=== PATIENT | male | born 1995 | race Caucasian/White ===

== ENCOUNTER 2021-10-31 11:11 | Emergency (ER) | payer MEDICAID ==
[~2021-10-31] VITALS: Ht 182.9 cm; Wt 93.2 kg
[2021-10-31] MEDS ORDERED: ALBUTEROL SULFATE 2.5 MG/0.5 ML NEB SOLUTION NEB ONE (12:30)
[2021-10-31] MEDS ORDERED: IPRATROPIUM BROMIDE 0.5 MG/2.5 ML NEB SOLUTION NEB ONE (12:30)
[2021-10-31] MEDS ORDERED: PredniSONE 20 MG TABLET PO ONE (12:30)
[2021-10-31 12:56] LABS: COVID AG,FIA SOURCE NASAL SWAB
[2021-10-31] MEDS ORDERED: PRED-554 PO (14:43)
[2021-10-31] MEDS ORDERED: AZIT250T9 PO (14:43)
[2021-10-31] MEDS ORDERED: ALBU8HFA IH (14:44)
[2021-10-31 15:01] VITALS: BP 117/69
== END 2021-10-31 15:12 | disposition home or self-care (01) ==
LOC: EMS 11:14
DX: J40 Bronchitis, not specified as acute or chronic (principal); F17.210 Nicotine dependence, cigarettes, uncomplicated; Z20.822 Contact with and (suspected) exposure to COVID-19
CPT/HCPCS: 99285; 71046; 87426; 94640; J7512; J7613

== ENCOUNTER 2022-04-04 16:41 | Emergency (ER) | payer MEDICAID ==
[~2022-04-04] VITALS: Ht 182.9 cm; Wt 81.8 kg
[~2022-04-04 16:41] MED LIST: ALBU8HFA IH
[2022-04-04] MEDS ORDERED: IBUP-1492 PO (19:17)
[2022-04-04 19:52] VITALS: BP 124/65
== END 2022-04-04 20:05 | disposition home or self-care (01) ==
LOC: EMS 16:48
DX: M25.511 Pain in right shoulder (principal); Z87.891 Personal history of nicotine dependence
CPT/HCPCS: 99283

== ENCOUNTER 2022-09-30 17:10 | Emergency (ER) | payer MEDICAID ==
[~2022-09-30] VITALS: Ht 188 cm; Wt 91.0 kg
[~2022-09-30 17:10] MED LIST changes: -ALBU8HFA IH; +IBUP-1492 PO
[2022-09-30 17:16] VITALS: TEMP 98.4
[2022-09-30] MEDS ORDERED: ONDANSETRON HCL 4 MG/2 ML VIAL IVP ONE (19:15)
[2022-09-30] MEDS ORDERED: SODIUM CHLORIDE 0.9% 1,000 ML IV ONE ×2 (19:15→20:15)
[2022-09-30 19:37] LABS: BASOPHILS % (AUTO) 0.2 % (0.0-2.0); EOSINOPHILS % (AUTO) 0.4 % (1.0-6.0); HEMATOCRIT 46.5 % (41-53); HEMOGLOBIN 15.9 g/dL (13.5-17.5); LYMPHOCYTES # (AUTO) 2.2 K/uL (1.0-4.8); LYMPHOCYTES % (AUTO) 25.3 % (22.0-44.0); MEAN CORPUSCULAR HEMOGLOBIN 28.2 pg (26.0-34.0); MEAN CORPUSCULAR HGB CONC 34.2 G/dL (31.0-37.0); MEAN CORPUSCULAR VOLUME 83 fL (80-100); MONOCYTES # (AUTO) 0.5 K/uL (0.1-1.0); MONOCYTES % (AUTO) 5.5 % (2.0-9.0); NEUTROPHILS % (AUTO) 68.6 % (40.0-70.0); PLATELET COUNT (AUTO) 233 K/uL (150-450); RED BLOOD CELL COUNT(AUTO) 5.64 MIL/uL (4.50-5.90); RED CELL DISTRIBUTION WIDTH 13.1 % (11.5-14.5)
[2022-09-30 19:39] LABS: ANION GAP 12 mmol/L (8-16); CALCIUM, TOTAL 9.7 mg/dL (8.8-10.5); CARBON DIOXIDE 28 mmol/L (22-29); CHLORIDE 99 mmol/L (98-107); CREATININE 1.05 mg/dL (0.60-1.30); GLOMERULAR FILTR. RATE CALC > 60 mL/min (>60); GLUCOSE,RANDOM 89 mg/dL (70-110); POTASSIUM 4.2 mmol/L (3.5-5.1); SODIUM SERUM 139 mmol/L (136-145)
[2022-09-30 19:45] LABS: ALANINE AMINOTRANSFERASE 164 U/L (12-78); ALBUMIN 4.4 g/dL (3.4-5.0); ALKALINE PHOSPHATASE 88 U/L (46-116); ASPARTATE AMINOTRANSFERASE 51 U/L (15-37); BILIRUBIN,TOTAL 0.9 mg/dL (0.1-1.0); TOTAL PROTEIN, SERUM 8.3 g/dL (6.4-8.2)
[2022-09-30] MEDS ORDERED: MECL-167 PO (21:30)
[2022-09-30 22:03] VITALS: BP 117/63; PULSE 62; RESP 16
== END 2022-09-30 21:59 | disposition home or self-care (01) ==
LOC: EMS 17:11
DX: R11.2 Nausea with vomiting, unspecified (principal); R19.7 Diarrhea, unspecified; R42 Dizziness and giddiness; Z87.891 Personal history of nicotine dependence
CPT/HCPCS: 80053; 85025; 36415; 99283; 96361; 96374; J2405; J7030